=== PATIENT | female | born 1960 | race Caucasian/White ===

== ENCOUNTER 2017-06-12 19:41 | Emergency (ER) | payer BC ==
[~2017-06-12] VITALS: Ht 172.7 cm; Wt 95.4 kg
[2017-06-12 19:42] VITALS: BP 166/84
[2017-06-12] MEDS ORDERED: MICROFIBRILLAR COLLAGEN 1 GM TP ONE ×2 (19:57→20:00)
== END 2017-06-12 20:55 | disposition home or self-care (01) ==
LOC: ED 20:49
DX: S61.201A Unspecified open wound of left index finger without damage to nail, initial encounter (principal); G89.11 Acute pain due to trauma; W26.8XXA Contact with other sharp object(s), not elsewhere classified, initial encounter; Y93.G1 Activity, food preparation and clean up; Y92.090 Kitchen in other non-institutional residence as the place of occurrence of the external cause; Y99.8 Other external cause status
CPT/HCPCS: 99283